=== PATIENT | female | born 1955 | race Caucasian/White ===

== ENCOUNTER → 2020-01-27 | Outpatient (CLI) | payer OTHER, SELFPAY ==
--- NOTE | 2020-01-28 14:23 | US ---
EXAM DESCRIPTION: Renal Arteries: Ultrasound. CLINICAL HISTORY: MALIGNANT HYPERTENSION COMPARISON: Two-dimensional ultrasound evaluation of the bilateral kidneys on the same visit. TECHNIQUE: Transcutaneous scanning: Grayscale mode. Doppler peak systolic and end-diastolic velocities/measurements of the abdominal aorta, renal arteries, intra renal arteries, and renal veins. FINDINGS: The right kidney measures 9.4 x 4.0 x 4.5 cm: volume 87.5 ml. Normal cortical echogenicity; normal cortical thickness. Juxtacortical echogenic circumscribed mass measuring 1.7 cm. Minimal vascularity. No hydronephrosis, no large calcifications. Smooth contour of the kidney with no perinephric fluid. Proximal ureter not visualized. The left kidney measures 9.9 x 4.8 x 5.1 cm: volume 124 ml. Normal cortical echogenicity; normal cortical thickness. No hydronephrosis or large calcifications. Smooth contour of the kidney with no perinephric fluid. Proximal ureter not visualized. Distal ureters not visualized bilaterally. Urinary bladder was not visualized. Aorta diameter (cm): Mid: 1.2 cm. PSV (cm/sec): Aorta: 96 Right renal artery: 137 Left renal artery: 129 EDV (cm/sec): Right renal artery: 47 Left renal artery: 45 Renal veins: Unremarkable. IVC: Normal caliber. Intrarenal RI's: Proximal segmental Right: 0.64 Left: 0.66. Mid segmental Right: 0.64 Left: 0.63. Distal segmental Right: 0.62 Left: 0.63 Renal Aortic Ratio: Right RAR = RRA PSV/Aortic PSV = 137 /96= 1.4. Left RAR = LRA PSV/Aortic PSV = 129/96 = 1.3. End Diastolic Ratio: Right EDR = RRA EDV/RRA PSV = 47/137 = 0.34. Left EDR = LRA EDV/LRA PSV = 45/129= 0.34. Other: None. IMPRESSION: 1. Echogenic proteinaceous or hemorrhagic 1.7 cm cyst right kidney versus echogenic solid mass, most likely benign. If there are clinical abnormalities, consider follow-up CT scan kidneys without and with IV contrast. Otherwise bilateral kidneys are unremarkable. No echogenic stones and no hydronephrosis. 2. Renal aortic ratios are within normal range is not consistent with clinically significant stenosis. 3. Bilateral renal parenchymal RI values and end-diastolic ratios indicate no evidence of significant renovascular parenchymal disease. Electronically signed by: Satya Norris MD 01/28/2020 2:21 PM [facility]
== END ==
LOC: US 08:00
PROVIDERS: ATTEND Emergency Medicine
DX: I10 Essential (primary) hypertension (principal); N28.9 Disorder of kidney and ureter, unspecified